=== PATIENT | female | born 1975 | race Caucasian/White ===

== ENCOUNTER → 2021-11-06 | Outpatient (CLI) | payer OTHER ==
[~2021-11-06] MED LIST: COLACE 100MG C100 MG PO; DEPO-ESTRADIO5 MG/ML IM; DEPO-PROVE150 MG/11 IM; DOCUSATE SODIU250 MG PO; GLIMEPIRIDE4 MG PO; GLUCOPHAGE500 MG PO; HYDROCHLOROTH12.5 MG PO; HYDROCODONE-AC1 EACH PO; IBUPROFEN600 MG PO; JANUVIA 100 MG100 MG PO; LIPITOR40 MG PO; NEURONTIN 400400 MG PO; NORCO 5-325 TA1 EACH PO; PREVACID30 MG PO; PROAIR HFA8.5 GM INH; TENORMIN 25 MG25 MG PO; TRULICITY4.5 MG/0.5 SQ; ULTRAM50 MG PO; VITAMIN D21250 MCG PO
[2021-11-06 10:10] LABS: HEMOGLOBIN 14.3 gm/dl (12.3-15.3); RED BLOOD COUNT 4.89 M/UL (4.00-5.10); WHITE BLOOD COUNT 11.3 K/UL (4.5-11.0)
[2021-11-06 10:33] LABS: BUN/CREATININE RATIO 21 (0-10)
== END ==
LOC: OPSV2 09:00
PROVIDERS: Obstetrics & Gynecology
DX: Z01.818 Encounter for other preprocedural examination (principal); R10.2 Pelvic and perineal pain; R94.31 Abnormal electrocardiogram [ECG] [EKG]; Z88.1 Allergy status to other antibiotic agents; Z88.0 Allergy status to penicillin
CPT/HCPCS: 36415; 80053; 81001; 85025; 93005

== ENCOUNTER → 2021-11-12 | Day surgery (SDC) | payer OTHER ==
[~2021-11-12] VITALS: Ht 157.5 cm; Wt 117.0 kg
== END | disposition home or self-care (01) ==
LOC: OR 06:18
DX: D25.9 Leiomyoma of uterus, unspecified (principal); N73.6 Female pelvic peritoneal adhesions (postinfective); E11.9 Type 2 diabetes mellitus without complications; Z88.0 Allergy status to penicillin
CPT/HCPCS: 82962; 84703; C1769; J1100; J1170; J1580; J2001; J2250; J2405; J2704; J2795; J3010